=== PATIENT | female | born 1995 | race Caucasian/White ===

== ENCOUNTER 2022-03-16 13:13 | Emergency (ER) | payer OTHER, SELFPAY ==
--- NOTE | 2022-03-16 13:24 | ED.URI ---
HPI - URI/Sore Throat General Chief Complaint: Upper Respiratory Infection Stated Complaint: Sore Throat,Bilateral Ear Irritation,Headache, Time Seen by Provider: 03/16/22 13:39 Source: patient and RN notes reviewed Mode of arrival: ambulatory Limitations: no limitations History of Present Illness HPI Narrative: 26-year-old female presents with concern for 1 day history of sore throat, headache, bilateral ear irritation. Reports she took a negative COVID test at home. She reports history of multiple strep infections and tonsillectomy. She denies shortness of breath, fever, bodies, chills, sweats, sick contacts MD elicited complaint: sore throat Related Data Home Medications Medication Instructions Recorded Confirmed famotidine 03/16/22 meloxicam 03/16/22 trazodone 50 mg tablet 50 mg HS 03/16/22 03/16/22 Allergies Allergy/AdvReac Type Severity Reaction Status Date / Time No Known Allergies Allergy Verified 03/16/22 13:44 Review of Systems Review of Systems: CONSTITUTIONAL: Denies malaise, chills, sweats, or fever. EYES: Denies visual changes, redness, or discharge. ENT: Denies rhinorrhea, congestion, sinus pain. Reports otalgia and sore throat. CARDIOVASCULAR: Denies chest pain, palpitations, or edema. RESPIRATORY: Denies cough. Denies dyspnea. GASTROINTESTINAL: Denies abdominal pain, nausea, vomiting, diarrhea SKIN: Denies rash or itching. MUSCULOSKELETAL: Denies myalgia. NEUROLOGIC: Reports headache. All systems reviewed & are unremarkable except as noted in HPI and below PMFSH Comments At time of signature, agree with nursing past medical, surgical, social and family history. There is no relevant family history pertinent to the presenting complaint Exam Narrative: GENERAL: Well-appearing, well-nourished, and in no acute distress. HEAD: Normocephalic EYES: PERRLA, conjunctivae clear ENT: Nares clear. Mucous membranes moist. TM pearly oden with sharp light reflex bilaterally; no tragal tenderness. Oropharynx erythematous without lesions. Tonsils not present, no drooling, no hoarseness, no trismus, uvula midline. NECK: Supple. No lymphadenopathy CHEST: Clear to auscultation, breath sounds equal. No wheezing, rhonchi, rales, or stridor. No respiratory distress, speaks in full sentences. HEART: Regular rate and rhythm. No murmur heard. SKIN: Warm, dry, no rash. NEURO: Alert and oriented x3. PSYCH: Normal mood and affect Course Course Emergency Course: Patient is aware of diagnosis, understands and agrees to treatment plan. Anticipatory guidance given. Patient agrees to follow-up as directed and is aware of reasons to seek care at the emergency department. Portions of this record may have been created with voice recognition software Level of Care: Express Care Visit Vital Signs Vital signs: Reviewed. MDM - URI/Sore Throat MDM Narrative Medical decision making narrative: Differential diagnosis considered: Rodrigez virus, strep pharyngitis, allergic rhinitis, upper respiratory tract infection, sinusitis, rhinosinusitis, nasopharyngitis. viral pharyngitis, otitis media, otitis externa, pneumonia, bronchitis, viral cough syndrome, viral syndrome, and influenza. Exam findings show no acute concerns or changes; patient is non-toxic appearing and is in no distress. Patient is appropriate for outpatient treatment and follow-up. Lab Data Attestation: I reviewed the patient's lab results. Critical Care Time Critical Care Time Critical Care Time: No Discharge Plan Discharge Clinical Impression: Acute streptococcal pharyngitis Patient Disposition: Home, Self-Care Condition: Stable Instructions: Antibiotic Form, Strep Throat (ED) Additional Instructions: -Take the medication as prescribed. Throw away the toothbrush after 24hours of antibiotic. -Eat and drink things that are easy to swallow, like tea or soup, or popsicles to suck on. -Oral rinses such as: Salt water gargles and/or may use topica
[2022-03-16 13:27] VITALS: BP 112/82; PULSE 99; RESP 18; TEMP 36.8; O2SAT 100
== END 2022-03-16 13:52 | disposition home or self-care (01) ==
PROVIDERS: Emergency Provider Nurse Practitioner; PCP Family Medicine
DX: J02.0 Streptococcal pharyngitis (principal); J45.909 Unspecified asthma, uncomplicated
CPT/HCPCS: 87804; 87880; 99203; G0463

== ENCOUNTER 2022-04-07 12:14 | Emergency (ER) | payer OTHER, SELFPAY ==
[2022-04-07 12:24] VITALS: BP 119/84; PULSE 75; RESP 18; TEMP 36.4; O2SAT 100
--- NOTE | 2022-04-07 12:32 | ED.GENADULT ---
HPI - General Adult General Chief complaint: Upper Respiratory Infection Stated complaint: nasal congestion History of Present Illness HPI narrative: Patient is a 26-year-old female who presents to the [facility] via POV accompanied by her spouse for evaluation of a chronic cough that has worsened over the past 4 days patient denies associated signs and symptoms. Denies taking OTC meds for symptoms although has been reports her to be taking [id number] antihistamines and cold medications. Nothing improves or worsens symptoms. Denies a history of COPD, chronic bronchitis, pneumonia, and asthma. Related Data Home Medications Medication Instructions Recorded Confirmed famotidine 03/16/22 meloxicam 03/16/22 trazodone 50 mg tablet 50 mg HS 03/16/22 03/16/22 Allergies Allergy/AdvReac Type Severity Reaction Status Date / Time No Known Allergies Allergy Verified 03/16/22 13:44 Review of Systems Review of Systems: Denies fever, chills, sweats, change in appetite, poor p.o. intake, sinus problems, ear problems, rhinorrhea, sore throat, headaches, dizziness, cyanosis, shortness of breath, wheezing, dyspnea, abdominal pain, nausea, vomiting, diarrhea, constipation, chest pain, heart palpitations Exam Narrative: GENERAL: Well-appearing, well-nourished, and in no acute distress. HEAD: Normocephalic, atraumatic. No sinus tenderness or facial swelling appreciated. EYES: PERRLA and EOMI. No evidence of erythema, swelling, or drainage. ENT: Bilateral external ears and ear canals normal. CLEAR EFFUSION NOTED BEHIND RIGHT TM OTHERWISE TM APPEARS NORMAL. Left TM is normal.No TM perforation. Nares clear, no rhinorrhea or epistaxis. Bilateral turbinates without erythema/ swelling. Mucous membranes moist and pink. Uvula is midline without erythema and swelling. No evidence of petechial rash, cobblestoning, lesions, ulcers, erythema, swelling, exudates, peritonsillar abscess, tenting, or drooling. Breath odor and voice normal. NECK: Supple. No Lymphadenopathy or nuchal rigidity appreciated. CHEST: Bilateral lung huffman are clear to auscultation. No respiratory distress. No evidence of pleuritic cp upon examination. MILD DRY COUGH APPRECIATED UPON EXAMINATION. HEART: Regular rate and rhythm. No murmur, gallop, or rub heard. EXTREMITIES: Normal range of motion. No edema. SKIN: Warm, dry, no rash. NEURO: No focal deficits. Alert and oriented x3. Course Course Level of Care: Express Care Visit Vital Signs Vital signs: Vital Signs Temperature 97.6 F 04/07/22 12:24 Pulse Rate 75 04/07/22 12:24 Respiratory Rate 18 04/07/22 12:24 Blood Pressure 119/84 04/07/22 12:24 Pulse Oximetry 100 04/07/22 12:24 Oxygen Delivery Room Air 04/07/22 12:24 Temperature 97.6 F 04/07/22 12:24 Pulse Rate 75 04/07/22 12:24 Respiratory Rate 18 04/07/22 12:24 Blood Pressure 119/84 04/07/22 12:24 Pulse Oximetry 100 04/07/22 12:24 Oxygen Delivery Room Air 04/07/22 12:24 Medical Decision Making Differential Diagnosis Differential Diagnosis: Allergic rhinitis, ABRS, acute viral sinusitis, strep pharyngitis, nasopharyngitis, bronchitis, pneumonia, AOM, otitis externa, viral URI, influenza, covid-19 Vital Signs Vital Signs: Vital Signs Temperature 97.6 F 04/07/22 12:24 Pulse Rate 75 04/07/22 12:24 Respiratory Rate 18 04/07/22 12:24 Blood Pressure 119/84 04/07/22 12:24 Pulse Oximetry 100 04/07/22 12:24 Oxygen Delivery Room Air 04/07/22 12:24 Temperature 97.6 F 04/07/22 12:24 Pulse Rate 75 04/07/22 12:24 Respiratory Rate 18 04/07/22 12:24 Blood Pressure 119/84 04/07/22 12:24 Pulse Oximetry 100 04/07/22 12:24 Oxygen Delivery Room Air 04/07/22 12:24 Reviewed Critical Care Time Critical Care Time Critical Care Time: No Discharge Plan Discharge Clinical Impression: Upper respiratory infection Qualifiers: URI type: unspecified URI Qualifi
== END 2022-04-07 12:55 | disposition home or self-care (01) ==
PROVIDERS: Emergency Provider Nurse Practitioner Family; PCP Family Medicine
DX: J06.9 Acute upper respiratory infection, unspecified (principal)
CPT/HCPCS: 99213; G0463

== ENCOUNTER 2022-04-15 14:35 | Emergency (ER) | payer OTHER, SELFPAY ==
[2022-04-15 14:43] VITALS: BP 126/92; PULSE 59; RESP 16; TEMP 36.4; O2SAT 99
--- NOTE | 2022-04-15 14:51 | ED.FEMALEGU ---
HPI - Female Genitourinary General Chief complaint: Urogenital-Female Stated complaint: Possible UTI History of Present Illness HPI Narrative: This is a 26-year-old female comes in complaining of some abdominal pain with urination and painful urination and itching afterwards. Patient states that she felt like she had a UTI for over 1 week. Patient states that she has been taken Azo denies drinking a lot of water states she drinks a lot of coffee denies feeling like she has a yeast infection states that this feels like a normal UTI but she is just not had time to come in to be checked for urinary tract infection. Patient denies any nausea vomiting and/or diarrhea no fever Related Data Home Medications Medication Instructions Recorded Confirmed trazodone 50 mg tablet 50 mg PO HS 03/16/22 04/15/22 Allergies Allergy/AdvReac Type Severity Reaction Status Date / Time No Known Allergies Allergy Verified 04/15/22 14:38 Review of Systems Review of Systems: Dysuria All systems reviewed & are unremarkable except as noted in HPI and below PMFSH Comments At time as signature, I have reviewed and agree with nursing past medical, social, surgical and family history. Please see nursing chart for further information. There is no relevant family history pertinent to the presenting complaint. Exam Narrative: GENERAL:Well-appearing, well-nourished, and in no acute distress. HEAD:Normocephalic, atraumatic. EYES: PERRLA ENT: Nares clear, Mucous membranes moist. CHEST: Clear to auscultation. No respiratory distress. ABDOMEN: Soft, nontender, nondistended, normal active bowel sounds. No flank pain EXTREMITIES: Normal range of motion. No edema. SKIN: Warm, dry, no rash. NEURO: No focal deficits. Alert and oriented x3. Course Course Emergency Course: Positive 2+ blood trace protein positive nitrates trace leukocytes patient's urine is orange she took Azo Level of Care: Express Care Visit Vital Signs Vital signs: Vital Signs Temperature 97.5 F L 04/15/22 14:43 Pulse Rate 59 L 04/15/22 14:43 Respiratory Rate 16 04/15/22 14:43 Blood Pressure 126/92 H 04/15/22 14:43 Pulse Oximetry 99 04/15/22 14:43 Oxygen Delivery Room Air 04/15/22 14:43 Temperature 97.5 F L 04/15/22 14:43 Pulse Rate 59 L 04/15/22 14:43 Respiratory Rate 16 04/15/22 14:43 Blood Pressure 126/92 H 04/15/22 14:43 Pulse Oximetry 99 04/15/22 14:43 Oxygen Delivery Room Air 04/15/22 14:43 MDM - Female Genitourinary Lab Data Labs: Urine Glucose Negative Reference Range: Negative Urine Bilirubin Negative Reference Range: Negative Urine Ketone Negative Reference Range: Negative Urine Specific [place] 1.030 Reference Range:1.001-1.035 Urine Blood 2+ Reference Range: Negative * * Urine pH 6.0 Reference Range: 5.0-9.0 Urine Protein Trace Reference Range: Negative Urine Urobilinogen 0.2 Reference Range: 0.2-1.0 Urine Nitrate Positive Reference Range: Negative Urine Leukocyte Trace Reference Range: Negative Urine Color [place] Reference Range: Yellow Urine Characteristics Cloudy
== END 2022-04-15 14:59 | disposition home or self-care (01) ==
PROVIDERS: Emergency Provider Nurse Practitioner Family; PCP Family Medicine
DX: N39.0 Urinary tract infection, site not specified (principal); J45.909 Unspecified asthma, uncomplicated; Z86.16 Personal history of COVID-19
CPT/HCPCS: 81003; 87086; 87088; 99213; G0463